=== PATIENT | female | born 1945 | race Two or more races ===

== ENCOUNTER 2019-08-25 06:20 | Day surgery (SDC) | payer OTHER ==
[~2019-08-25 06:20] MED LIST: COZAAR100 MG PO; LIPITOR20 MG PO
== END 2019-08-25 11:10 | disposition home or self-care (01) ==
LOC: CIR.AMB 06:20
DX: R15.9 Full incontinence of feces (principal)
CPT/HCPCS: 64581; C1778

== ENCOUNTER 2019-09-08 06:57 | Day surgery (SDC) | payer OTHER ==
[2019-09-08] MEDS ORDERED: BACTRIM DS TAB1 EACH PO (10:07)
[2019-09-08] MEDS ORDERED: PANTOPRAZOLE SO40 MG PO (10:08)
== END 2019-09-08 13:45 | disposition home or self-care (01) ==
LOC: CIR.AMB 06:57
DX: R15.9 Full incontinence of feces (principal)
CPT/HCPCS: 64590; C1767

== ENCOUNTER 2020-10-11 07:50 | Day surgery (SDC) | payer OTHER ==
[~2020-10-11 07:50] MED LIST changes: +AMILODIPINE PO; +ATORVASTATIN CA40 MG PO; +BACTRIM DS TAB1 EACH PO; +FORTAMET1000 MG PO; +LOSARTAN-HCTZ1 EAC1 PO; +NASAL MIST126 ML; +PANTOPRAZOLE SO40 MG PO
== END 2020-10-11 14:25 | disposition home or self-care (01) ==
LOC: CIR.AMB 07:50
PROVIDERS: ATTEND Colon & Rectal Surgery
DX: R15.9 Full incontinence of feces (principal); Z20.822 Contact with and (suspected) exposure to COVID-19